=== PATIENT | male | born 1950 | race Two or more races ===

== ENCOUNTER 2020-08-17 10:43 | Observation (INO) | payer MEDICARE, MEDICAID ==
[~2020-08-17] VITALS: Ht 175.3 cm; Wt 73.9 kg
--- NOTE | 2020-08-17 11:31 | NUR ---
PIV STARTED AND BLOOD DRAWN AND SENT TO LAB. PT VOIDED APPROX 400ML IN THE URINAL. PT RESTING WITH NO COMPLAINTS. CALL BUTTON IN LAP.
--- NOTE | 2020-08-17 11:34 | NUR ---
[facility] HAND-OFF REPORT GIVEN TO SUZANNE PETTIT.
[2020-08-17 11:49] LABS: BASOPHILS % (AUTO) 1 % (0-1); EOSINOPHILS % (AUTO) 0 % (1-7); LYMPHOCYTES % (AUTO) 15 % (22-44); MEAN CORPUSCULAR HEMOGLOBIN 36.5 pg (27.5-34.5); MEAN CORPUSCULAR HGB CONC 34.7 g/dL (33.2-36.2); MONOCYTES % (AUTO) 7 % (2-9); NEUTROPHILS % (AUTO) 77 % (42-75); PLATELET COUNT 305 x10^3/uL (130-400); RED BLOOD COUNT 3.97 x10^6/uL (4.38-5.82); RED CELL DISTRIBUTION WIDTH 14.1 % (9.4-14.8)
[2020-08-17 11:57] LABS: MD NO
[2020-08-17 12:06] LABS: ALANINE AMINOTRANSFERASE 63 U/L (12-78); ALBUMIN 3.3 g/dL (3.4-5.0); ANION GAP 10 mmol/L (5-15); CALCIUM 8.3 mg/dL (8.5-10.1); CHLORIDE 89 mmol/L (98-107); CREATININE 0.52 mg/dL (0.7-1.3)
[2020-08-17 12:10] LABS: ALKALINE PHOSPHATASE 131 U/L (45-117); BILIRUBIN,TOTAL 1.1 mg/dL (0.2-1.0); TOTAL PROTEIN 7.3 g/dL (6.4-8.2)
--- NOTE | 2020-08-17 13:05 | NUR ---
HOSPITALIST IN WITH PT
[2020-08-17] MEDS ORDERED: FUROSEMIDE 40 MG/4 ML ONE (13:30)
[2020-08-17] MEDS ORDERED: FUROSEMIDE 40 MG/4 ML IV ONE (13:30)
--- NOTE | 2020-08-17 13:52 | NUR ---
REPORT CALLED TO KASEY PALACIOS IN [facility]. WOUNDS CLEANSED AND DRESSED WITH NON-ADHESIVE DRESSING AND KERLEX
[2020-08-17 14:47] VITALS: BP 97/64
[2020-08-17 14:58] LABS: ANION GAP 13 mmol/L (5-15); CALCIUM 8.2 mg/dL (8.5-10.1); CHLORIDE 91 mmol/L (98-107); CREATININE 0.51 mg/dL (0.7-1.3)
[2020-08-17] MEDS ORDERED: ONDANSETRON ODT 4 MG PO PRN (15:00)
[2020-08-17] MEDS ORDERED: ONDANSETRON 2MG/ML, 2ML IVPush PRN (15:00)
[2020-08-17] MEDS ORDERED: ACETAMINOPHEN 325 MG TABLET PO PRN (15:00)
[2020-08-17] MEDS: ENOXAPARIN 40 MG/0.4 ML SQ SCH (15:57)
[2020-08-17] MEDS ORDERED: LORazepam 2 MG/ML, 1ML IV PRN ×3 (17:00)
[2020-08-17] MEDS ORDERED: LORazepam 1MG TABLET PO PRN (17:00)
[2020-08-17] MEDS: LORazepam 1MG TABLET PO PRN (17:03)
[2020-08-17 17:09] LABS: ANION GAP 13 mmol/L (5-15); CALCIUM 8.1 mg/dL (8.5-10.1); CHLORIDE 92 mmol/L (98-107); CREATININE 0.48 mg/dL (0.7-1.3)
[2020-08-17] MEDS ORDERED: FUROSEMIDE 20 MG/2 ML IV ONE (18:00)
[2020-08-17] MEDS ORDERED: POTASSIUM CHLORIDE 40 MEQ in SODIUM CHLORIDE 0.9% 500 ML IV ONE (18:00)
[2020-08-17] MEDS ORDERED: POTASSIUM CHLORIDE 20 MEQ TAB.ER.PRT PO ONE (18:00)
[2020-08-17] MEDS: BACLOFEN 10 MG TABLET PO SCH (19:55)
[2020-08-17 21:00] VITALS: BP 116/68
[2020-08-18 00:50] VITALS: BP 131/74
[2020-08-18] MEDS: LORazepam 1MG TABLET PO PRN ×3 (02:31→21:28)
[2020-08-18 04:24] LABS: BASOPHILS % (AUTO) 1 % (0-1); EOSINOPHILS % (AUTO) 1 % (1-7); LYMPHOCYTES % (AUTO) 19 % (22-44); MEAN CORPUSCULAR HEMOGLOBIN 36.9 pg (27.5-34.5); MEAN CORPUSCULAR HGB CONC 35.2 g/dL (33.2-36.2); MEAN PLATELET VOLUME 6.8 fL (7.4-10.4); MONOCYTES % (AUTO) 12 % (2-9); NEUTROPHILS % (AUTO) 68 % (42-75); PLATELET COUNT 249 x10^3/uL (130-400); RED BLOOD COUNT 3.26 x10^6/uL (4.38-5.82); RED CELL DISTRIBUTION WIDTH 13.8 % (9.4-14.8)
[2020-08-18 04:26] LABS: ANION GAP 7 mmol/L (5-15); CALCIUM 7.8 mg/dL (8.5-10.1); CHLORIDE 98 mmol/L (98-107); CREATININE 0.56 mg/dL (0.7-1.3)
[2020-08-18 04:31] LABS: MD NO
[2020-08-18 06:35] VITALS: BP 100/60
[2020-08-18] MEDS ORDERED: MAGNESIUM SULFATE PMX 2GM/50ML 50 ML IV ONE (08:30)
[2020-08-18] MEDS: FOLIC ACID 1 MG TABLET PO SCH (09:30)
[2020-08-18] MEDS: BACLOFEN 10 MG TABLET PO SCH ×2 (09:30→21:00)
[2020-08-18] MEDS: THIAMINE 100MG TABLET PO SCH (09:30)
[2020-08-18] MEDS: FUROSEMIDE 40 MG/4 ML IV SCH (09:31)
[2020-08-18 12:50] VITALS: BP 108/63
[2020-08-18] MEDS: ENOXAPARIN 40 MG/0.4 ML SQ SCH (15:53)
[2020-08-18 19:20] VITALS: BP 104/51
[2020-08-19 01:01] VITALS: BP 135/73
[2020-08-19 04:34] LABS: BASOPHILS % (AUTO) 1 % (0-1); EOSINOPHILS % (AUTO) 1 % (1-7); LYMPHOCYTES % (AUTO) 36 % (22-44); MEAN CORPUSCULAR HEMOGLOBIN 36.5 pg (27.5-34.5); MEAN CORPUSCULAR HGB CONC 34.4 g/dL (33.2-36.2); MEAN PLATELET VOLUME 7.2 fL (7.4-10.4); MONOCYTES % (AUTO) 11 % (2-9); NEUTROPHILS % (AUTO) 52 % (42-75); PLATELET COUNT 229 x10^3/uL (130-400); RED BLOOD COUNT 3.23 x10^6/uL (4.38-5.82); RED CELL DISTRIBUTION WIDTH 13.8 % (9.4-14.8)
[2020-08-19 04:44] LABS: ALANINE AMINOTRANSFERASE 56 U/L (12-78); ALBUMIN 2.3 g/dL (3.4-5.0); ANION GAP 6 mmol/L (5-15); CALCIUM 7.6 mg/dL (8.5-10.1); CHLORIDE 100 mmol/L (98-107)
[2020-08-19 04:47] LABS: ALKALINE PHOSPHATASE 87 U/L (45-117); BILIRUBIN,TOTAL 0.9 mg/dL (0.2-1.0); CREATININE 0.53 mg/dL (0.7-1.3); TOTAL PROTEIN 5.8 g/dL (6.4-8.2)
[2020-08-19 05:49] LABS: MD SCAN
[2020-08-19 06:33] VITALS: BP 128/60
[2020-08-19] MEDS: THIAMINE 100MG TABLET PO SCH (07:26)
[2020-08-19] MEDS: BACLOFEN 10 MG TABLET PO SCH (07:26)
[2020-08-19] MEDS: FOLIC ACID 1 MG TABLET PO SCH (07:27)
[2020-08-19] MEDS: FUROSEMIDE 40 MG/4 ML IV SCH (07:27)
[2020-08-19] MEDS ORDERED: FURO-93 PO (08:32)
[2020-08-19] MEDS ORDERED: THIA100T27 PO (08:32)
[2020-08-19] MEDS ORDERED: FOLI1TAB32 PO (08:32)
[2020-08-19] MEDS ORDERED: THIAMINE 100 MG in DEXTROSE 5% 50 ML IVPB SCH (09:00)
[2020-08-19] MEDS: LORazepam 1MG TABLET PO PRN ×2 (09:57→16:35)
[2020-08-19 12:19] VITALS: BP 134/77
[2020-08-19] MEDS: ENOXAPARIN 40 MG/0.4 ML SQ SCH (14:44)
== END 2020-08-19 19:10 | disposition home or self-care (01) ==
LOC: ED 11:45 → EDIP 12:41 → INTOOBSV 12:41 → 4WST 14:30
PROVIDERS: ADMIT Family Medicine; ATTEND Family Medicine
DX: E87.1 Hypo-osmolality and hyponatremia (principal); I87.8 Other specified disorders of veins; K42.9 Umbilical hernia without obstruction or gangrene; R60.0 Localized edema; E87.6 Hypokalemia; E83.42 Hypomagnesemia; R74.01 Elevation of levels of liver transaminase levels; K70.30 Alcoholic cirrhosis of liver without ascites; F17.200 Nicotine dependence, unspecified, uncomplicated; F43.10 Post-traumatic stress disorder, unspecified; F10.10 Alcohol abuse, uncomplicated; F12.90 Cannabis use, unspecified, uncomplicated; Z86.711 Personal history of pulmonary embolism; Z79.899 Other long term (current) drug therapy; Z59.0 Homelessness
CPT/HCPCS: 36415; 76705; 80048; 80053; 80074; 83735; 83880; 83930; 85025; 93005; 93306; 96365; 96366; 96367; 96372; 96375; 96376; 99284; G0378; J1650; J1940; J3411; J3475; J3480; J7040; 96374; 99285